=== PATIENT | male | born 2000 | race Caucasian/White ===

== ENCOUNTER 2019-04-20 05:17 | Inpatient (IN) ==
--- NOTE | 2019-04-19 10:31 | History and Physical Report ---
DATE: 04/20/2019 PATIENT OF: Natanael Sarkar MD. CHIEF COMPLAINT: Left foot fifth metatarsal fracture. HISTORY OF PRESENT ILLNESS: This 19-year-old white male presents to the office with complaints of left foot pain. The patient injured himself this week while in practice. He was running a route and attempting to cut to the side. He planted with the foot and felt a pop. He attempted to take the next step and states he fell to the ground secondary to pain. He attempted to continue running but was unable. No prior history of significant foot injury. Subsequent films revealed a left fifth metatarsal Patterson type fracture. He is currently in a Cam boot. The patient elects to proceed with surgical intervention after being educated about potential risks and outcomes. Preoperative imaging has been obtained. He denies any numbness or tingling. No pain in the ankle. PAST MEDICAL HISTORY: Significant for seasonal allergies. PREVIOUS SURGERIES: Myringotomy as a child. ALLERGIES: NKDA. KNOWN ENVIRONMENTAL ALLERGIES. SOCIAL HISTORY: [employer] student. Single. No tobacco use, no ETOH use. FAMILY HISTORY: Noncontributory. Parents are living. REVIEW OF SYSTEMS: A total of 10 systems are reviewed and are significant only for above-stated conditions. PHYSICAL EXAMINATION: GENERAL: A well-developed, well-nourished young white male in no acute distress. Sitting in a chair. Alert and oriented. SKIN: Warm and dry with good turgor. No rashes or lesions. No ecchymosis or erythema. HEENT: Normocephalic, atraumatic. Eyes: PERRLA, EOMI. Nares patent bilaterally without turbinate enlargement. Oropharynx without erythema or exudate. No lesions noted. Uvula midline. Oral mucosa moist. Good dentition. HEART: RRR. No MGR. LUNGS: Clear to auscultation bilaterally. No crackles, rhonchi or wheezing. Good air movement. ABDOMEN: Bowel sounds present x4, soft, nontender. No organomegaly. No masses. MUSCULOSKELETAL: Left foot has no obvious asymmetry or deformity. He has discomfort with palpation over the fifth metatarsal base. Intact motor function of the toes and ankle. NEUROLOGIC: Gross sensation is intact across the upper and lower extremities by soft touch. Peripheral pulses are 2+. DATA: Radiographic imaging previously obtained shows a Patterson type fracture of the left fifth metatarsal. IMPRESSION: Left foot fifth metatarsal fracture. PLAN: The patient elects to proceed with surgical intervention. Informed written consent will be obtained on the morning of surgery. No preoperative testing is necessary. He is healthy. Postoperative prescriptions for Percocet and Keflex have already been provided. EH
[2019-04-20] MEDS ORDERED: LACTATED RINGER'S 1,000 ML IV SCH (05:45)
[2019-04-20] MEDS ORDERED: CEFAZOLIN 2000MG 2,000 MG/15 ML SYR IV SCH (06:00)
--- NOTE | 2019-04-20 06:34 | History & Physical Bridge Note ---
Date of Service April 20, 2019 History & Physical Bridge Note I have examined the patient, reviewed the History & Physical and in the interval since the performance of the History & Physical I have noted the following changes of clinical significance:consent obtained. no changes noted
[2019-04-20] MEDS ORDERED: OXYCODONE/ACETAMINOPHEN 5mg/325mg TAB PO PRN (06:35)
[2019-04-20] MEDS ORDERED: MIDAZOLAM HCL 1 MG/ML 2ML VIAL ONE ×2 (06:44→06:50)
[2019-04-20] MEDS ORDERED: fentaNYL citrate 100 MCG/2 ML VIAL ONE (06:44)
[2019-04-20] MEDS ORDERED: ROPIVACAINE 0.5% 5 MG/ML 30 ML VIAL ONE (07:11)
[2019-04-20] MEDS ORDERED: fentaNYL citrate 100 MCG/2 ML VIAL IV PRN (07:15)
[2019-04-20] MEDS ORDERED: ONDANSETRON INJ 2 MG/ML 2 ML VIAL IV PRN (07:15)
[2019-04-20] MEDS ORDERED: ATROPINE SULFATE 0.1 MG/ML 10ML SYR IV PRN (07:15)
[2019-04-20] MEDS ORDERED: ePHEDrine sulfate 50 MG/ML AMP IV PRN (07:15)
--- NOTE | 2019-04-20 07:18 | Anesthesiology Consultation ---
Date of Service April 20, 2019 Assessment & Plan (1) Encounter for pre-operative examination: Chart Review Chart Review: Acceptable Risk for Surgery Consults Requested none ASA ASA1 Proposed Anesthesia Anesthesia Type: General Regional Regional Laterality: Left Site: Popliteal Risk / Benefits Reviewed With: PT / POA / Parent / Guardian, Accepts Plan and Informed Consent Obtained History Surgery Operation Date: 04/20/19 07:30 Proposed Procedures p Left Open Reduction Internal Fixation 5th Metatarsal Fracture - Natanael Sarkar MD Height/Weight Height: 6 ft Weight: 87.5 kg Allergies Allergy/AdvReac Type Severity Reaction Status Date / Time No Known Allergies Allergy Unverified 04/20/19 05:43 Medications Active Medications Generic Name Dose Route Start Last Admin Trade Name Freq PRN Reason Stop Dose Admin Lactated Ringer's 1,000 mls @ 15 mls/hr 04/20/19 05:45 04/20/19 06:04 Lr IV 05/20/19 05:44 15 mls/hr .Q24H MARCOS Administration NPO Date Last Intake of Fluids: 04/19/19 Time Last Intake of Fluids: 05:25 Date Last Intake of Solids: 04/19/19 Time Last Intake of Solids: 05:25 Exercise / Class Metabolic Activity 1 > 8 Run/Swim/Ski/Tennis Past Surgical History Surgical History History of myringotomy Past Anesthesia History No Hx of Anesthesia Complications and No Family Hx of Anesthesia Complications History of PONV No Hx of PONV and No Hx of Motion Sickness Social History Smoking Status: Never smoker Hx Alcohol Use: Yes Alcohol type: beer alcohol intake frequency: holidays/special occasions only Hx Substance Use: No Physical Exam Vital Signs Last Vital Signs Temp 98.1 F 04/20/19 07:08 Pulse 49 L 04/20/19 07:08 Resp 18 04/20/19 07:08 BP 134/75 04/20/19 07:08 Pulse Ox 100 04/20/19 07:08 ENMT Mouth: no dentition abnormality Thyromental Distance: > or= 3.5 Finger Breadths Mallampati Class: I Neck normal visual inspection Respiratory normal respiratory effort Auscultation: lungs clear to auscultation bilaterally Cardiovascular Rate/Rhythm: regular rate and regular rhythm
[2019-04-20] MEDS ORDERED: CEFAZOLIN 250 MG/ML 1 GM VIAL ONE (07:39)
[2019-04-20] MEDS ORDERED: PROPOFOL IV EMULSION 10 MG/ML 20 ML VIAL IV ONE (07:40)
[2019-04-20] MEDS ORDERED: ONDANSETRON INJ 2 MG/ML 2 ML VIAL ONE (07:58)
[2019-04-20] MEDS ORDERED: DEXAMETHASONE SOD INJ 4 MG/ML VIAL ONE (07:58)
[2019-04-20] MEDS ORDERED: CEFAZOLIN 2000MG 2,000 MG/15 ML SYR IV ONE (08:42)
--- NOTE | 2019-04-20 08:53 | Post Operative Brief Note ---
Immediate Post Op Note v1 Date of Surgery April 20, 2019 Pre & Post Diagnosis Operation Date: 04/20/19 07:30 Pre-Op Diagnosis: Left 5th Metatarsal Fracture Post-Op Diagnosis: Left 5th Metatarsal Fracture Procedure Operation Date: 04/20/19 07:30 Actual Procedures p Left Open Reduction Internal Fixation 5th Metatarsal Fracture(Left) - Natanael Sarkar MD Surgeon Natanael Sarkar MD Loan Funder gabby Estimated Blood Loss 1 Findings Consistent with Post-Op Diagnosis
--- NOTE | 2019-04-20 09:21 | Fluoroscopy Report ---
FL foot LT 2V CLINICAL HISTORY: LT 5TH MT COMPARISON STUDY: Left foot radiographs April 19, 2019. FLUOROSCOPY TIME: 1 minute and 22 seconds. FLUOROSCOPIC IMAGES: 9 FINDINGS: These images demonstrate screw fixation of the fracture of the left fifth metatarsal. Fract ure alignment appears anatomic. Hardware is intact. There are no unexpected radiopaque foreign bodies . IMPRESSION: Expected findings following internal fixation of the left fifth metatarsal fracture. Electronically signed by: Blu Jay M.D. 04/20/2019 9:19 AM
--- NOTE | 2019-04-20 09:26 | Operative Report ---
Post Operative Report Pre & Post Diagnosis Operation Date: 04/20/19 07:30 Pre-Op Diagnosis: Left 5th Metatarsal Fracture Post-Op Diagnosis: Left 5th Metatarsal Fracture Procedure Operation Date: 04/20/19 07:30 Actual Procedures p Left Open Reduction Internal Fixation 5th Metatarsal Fracture(Left) - Natanael Sarkar MD Surgeon Natanael Sarkar MD Plastics Worker gabby Estimated Blood Loss 1 Findings Consistent with Post-Op Diagnosis Specimens None Complications none Disposition Accompanied Patient To Recovery: Yes Disposition: Recovery Room Indications 19-year young man with left fifth metatarsal gabriela's fracture Description of Procedure Floppy lateral position with beanbag, standard prep and drape, under tourniquet control, timeout for patient safety Closed reduction and percutaneous screw fixation of left fifth metatarsal base fracture along with percutaneous autograft Please see Dr. Sarkar's procedure notes for specific details. I was present throughout the case assisted for wound closure application of splint and transfer the patient to PACU in stable condition. I attest to the content of the Intraoperative Record and any orders documented therein. Any exceptions are noted below.
--- NOTE | 2019-04-20 09:32 | Operative Report ---
DATE OF OPERATION: 04/20/2019 SURGEON: Natanael Sarkar MD. TITLE SEARCHER: Eugenie. PREOPERATIVE DIAGNOSIS: Patterson fracture with [id number] changes, left fifth metatarsal. POSTOPERATIVE DIAGNOSIS: Patterson fracture with [id number] changes, left fifth metatarsal. OPERATION PERFORMED: Intramedullary screw fixation with autogenous distal tibia bone graft using a Jamshidi needle technique. 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 The medullary canal was essentially sealed. At this point in time, it was deemed appropriate to proceed with surgical treatment. I also advised that I would like to bone graft this with autogenous graft from the distal tibia or calcaneus. ESTIMATED BLOOD LOSS: 1 mL. No pathology pending. DVT prophylaxis with aspirin. DESCRIPTION OF PROCEDURE: The patient was appropriately identified, site verified, consent verified. Antibiotics confirmed as being given. The left lower extremity was prepped and draped in usual routine fashion. Tourniquet inflated to 275 mmHg after exsanguination of limb with a rubber Esmarch bandage for a total of 56 minutes. Using fluoroscopic control, the proximal site incision was noted. An incision was then made. Care was taken to bluntly dissect down to the insertion site. Care was taken to be high and inside with the wire. This was then seated and then drilled. The area was very sclerotic at the fracture site. It was enlarged serially with a 2.7 drill bit, then up to a 3.2 drill bit. The tap was then placed across. In order to ensure that there was full compression technique with no threads catching the proximal fragment, it was overdrilled with a 4.5 drill bit 2-3 mm into the distal segment. Once this was done, after it was irrigated, a 55 screw was placed with an excellent purchase and it compressed the fracture nicely. This area was then closed with 4-0 nylon suture. Once this was done, the distal tibia was then harvested with a Jamshidi biopsy with 4 passes. A skin tiffany was made, blunt dissection down to the anteromedial tibia and then a drill hole made with a 2.7 drill bit and then again Jamshidi biopsy needle passed and then under fluoroscopic control, at the distal incision, it was subcutaneously tunneled up into the fracture area, then the material from the marrow and the bone deposited into the area. Good fixation of the area was obtained. Fluoroscopic views revealed anatomic alignment of the fracture. Good compression of the fracture. The procedure was then terminated. These 2 little incisions were then closed with 4-0 nylon. Appropriate dressing applied. The patient transferred to recovery room in satisfactory condition having tolerated the procedure well. He will be nonweightbearing. I attest to the content of the Intraoperative Record and any orders documented therein. Any exceptions are noted below. EH
--- NOTE | 2019-04-20 09:47 | Anesthesiology Progress Note ---
Date of Service April 20, 2019 Anesthesia Post Procedure Vital Signs Vital Signs: Temp Pulse Pulse Resp BP BP Pulse Ox 04/20/19 09:40 44 L 15 131/56 L 98 04/20/19 09:30 50 L 14 124/69 100 04/20/19 09:20 47 L 13 133/60 100 04/20/19 09:14 97.9 F 63 16 136/62 100 04/20/19 07:08 98.1 F 49 L 18 134/75 100 04/20/19 05:31 97.7 F 53 L 18 129/77 100 Transfer of Care Handoff Completed per policy Notes Mental Status: alert / awake / arousable and participated in evaluation Patient Amnestic to Procedure: Yes Nausea / Vomiting: adequately controlled Pain: adequately controlled Airway Patency, RR, SpO2: stable & adequate BP & HR: stable & adequate Hydration State: stable & adequate Anesthetic Complications: no major complications apparent and Pt Satisfied with anesthetic care
[2019-04-20] MEDS ORDERED: cefTRIAXone SODIUM 2,000 MG in DEXTROSE 5% 50 ML IV ONE (10:00)
--- NOTE | 2019-04-20 10:56 | Progress Note ---
DATE: 04/20/2019 SUBJECTIVE: Check status post ORIF Patterson fracture with autogenous bone grafting. At this point in time, he is sitting up in bed eating, drinking and is comfortable. Denies chest pain, shortness of breath, fever, chills, nausea, vomiting or headache. CMS distally is limited by his popliteal block, has trace active extension, flexion of his toes. Decreased sensation which is expected from the block. No active bleeding. ASSESSMENT: Doing well. Discharge to home. Follow up in the training room. Nonweightbearing.
--- NOTE | 2019-04-22 08:58 | Discharge Summary ---
Taken to the operating room. Discharged an hour after he was upstairs. I am not sure why discharge summary is required for case like this. He was an outpatient surgery case. Please see the H&P. Everything is in there.
== END 2019-04-20 12:08 | disposition home or self-care (01) | DRG 505 ==
LOC: ASU 05:17 → 3E 05:30